=== PATIENT | male | born 1975 | race Hispanic/Latino ===

== ENCOUNTER 2016-09-20 21:52 | Emergency (ER) | payer BC, MEDICARE ==
[2016-09-20 21:57] VITALS: RESP 16; TEMP 97.6; O2SAT 100
[2016-09-20] MEDS ORDERED: Sodium Chloride 0.9% 1,000 ML IV SCH ×2 (22:15→22:57)
[2016-09-20] MEDS ORDERED: Atropine-Diphenoxylate 0.025-2.5 mg Tab PO ONE (22:19)
--- NOTE | 2016-09-20 22:26 | ED PDOC ---
HPI: Abdomen Additional History Per: Patient <RaymondRhoda hoytan - Last Filed: 09/20/16 23:56> <Salena Vasquez - Last Filed: 09/21/16 13:59> Chief Complaint (Nursing): Abdominal Pain Additional Complaint(s): 41M p/w multiple, watery, non-bloody episodes of diarrhea (~30x) that began as per patient, but then reports occasional episodes throughout past week. 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, RIH x1 Allergies: NKDA Medications: None Smoke: Yes Alcohol: 8 beers last night Drugs: Denies (Dary Pantoja) Supervising Attending Note - Supervising Attending Note The Documented history was done by the: Physician Director Of Outreach, Attending Physician The documented physical exam was done by the: Physician Director Of Outreach, Attending Physician - Attestation: I have personally seen and examined this patient.: Yes I have fully participated in the care of the patient.: Yes I have reviewed all pertinent clinical information: Yes <Salena Vasquez - Last Filed: 09/21/16 13:59> Past Medical History - Family History Family History: States: Unknown Family Hx <RaymondlaiDary - Last Filed: 09/20/16 23:56> <Salena Vasquez - Last Filed: 09/21/16 13:59> Vital Signs: Last Vital Signs Temp 97.6 F 09/20/16 21:54 Pulse 75 09/20/16 23:54 Resp 16 09/20/16 23:54 BP 125/80 09/20/16 23:54 Pulse Ox 100 09/20/16 23:57 - Home Medications Home Medications: Ambulatory Orders Medication Instructions Recorded Atropine/Diphenoxylate [Lonox 2 tab PO Q6 PRN #20 tab 09/20/16 0.025 MG-2.5 MG] Ciprofloxacin HCl [Cipro] 500 mg PO BID #20 tab 09/20/16 metroNIDAZOLE [Flagyl] 500 mg PO TID #30 tab 09/20/16 - Allergies Allergies/Adverse Reactions: Allergies Allergy/AdvReac Type Severity Reaction Status Date / Time No Known Allergies Allergy Verified 09/20/16 21:58 Review of Systems ROS Statement: Except As Marked, All Systems Reviewed And Found Negative Constitutional: Positive for: Chills Gastrointestinal: Positive for: Diarrhea (Watery, non-bloody) <Dary Pantoja - Last Filed: 09/20/16 23:56> Physical Exam - Physical Exam Appears: Positive for: Well, Non-toxic, Uncomfortable Head Exam: Positive for: ATRAUMATIC, NORMAL INSPECTION Skin: Positive for: Normal Color, Warm Eye Exam: Positive for: EOMI, PERRL. Negative for: Conjunctival injection ENT: Positive for: Pharynx Is (clear). Negative for: Tonsillar Exudate Neck: Positive for: Normal, Supple Cardiovascular/Chest: Positive for: Regular Rate, Rhythm. Negative for: JVD Respiratory: Positive for: Normal Breath Sounds. Negative for: Crackles, Rales , Rhonchi, Wheezing Pulses-Dorsalis Pedis (L): 2+ Pulses-Dorsalis Pedis (R): 2+ Pulses-Radial (L): 2+ Pulses-Radial (R): 2+ Gastrointestinal/Abdominal: Positive for: Normal Exam (scars c/w surgical history), Bowel Sounds (Hyperactive), Soft. Negative for: Tenderness, Guarding , Rebound Extremity: Positive for: Normal ROM. Negative for: Pedal Edema Neurologic/Psych: Positive for: Alert <Dary Pantoja - Last Filed: 09/20/16 23:56> - Laboratory Results Result Diagrams: 09/20/16 22:37 09/20/16 22:37 - ECG O2 Sat by Pulse Oximetry: 100 <Dary Pantoja - Last Filed: 09/20/16 23:56> - Laboratory Results Result Diagrams: 09/20/16 22:37 09/20/16 22:37 <Salena Vasquez - Last Filed: 09/21/16 13:59> Medical Decision Making <Dary Pantoja - Last Filed: 09/20/16 23:56> <Salena Vasquez - Last Filed: 09/21/16 13:59> Medical Decision Making: Viral gastroenteritis vs. c. diff - CBC, CMP, Mg, Phos - Stool c. diff/O&P/culture - IVF NS - Lomotil CMP/Mg/Phos: WNL CBC: isolated Leukocytosis Will give initial dose of Cipro/Flagyl for diarrhea (Dary Pantoja) Disposition - Patient ED Disposition Is Patient to be Admitted: No Counseled Patient/Family Regarding: Studies Performed, Diagnosis, Need For Followup, Rx Given - Disposition Disposition: Routine/Home Disposition Time: 23:45 <Dary Pantoja - Last Filed: 09/20/16 23:56> <Salena Vasquez - Last Filed: 09/21/16 13:59> - Clinical Impression Clinical Impression: Diarrhea, Acute diarrhea - Disposition Condition: GOOD Prescriptions: Atropine/Diphenoxylate [Lonox 0.025 MG-2.5 MG] 2 tab PO Q6 PRN #20 tab PRN Reason: Diarrhea Ciprofloxacin HCl [Cipro] 500 mg PO BID #20 tab metroNIDAZOLE [Flagyl] 500 mg PO TID #30 tab Instructions: Acute Diarrhea (ED) Forms: [facility] ED School/Work Excuse
[2016-09-20 22:49] LABS: BASO # 0.1 K/uL (0.0-0.2); BASO % 0.3 % (0.0-2.0); EOS # 0.1 K/uL (0.0-0.7); EOS % 0.7 % (0.0-4.0); HEMATOCRIT 34.1 % (35.0-51.0); LYMPH # 4.8 K/uL (1.0-4.3); LYMPH % 29.9 % (20.0-40.0); MEAN CELL VOLUME 69.4 fl (80.0-94.0); MEAN CORPUSCULAR HEMOGLOBIN 22.2 pg (27.0-31.0); MEAN CORPUSCULAR HGB CONC 31.9 g/dL (33.0-37.0); MEAN PLATELET VOLUME 8.9 fl (7.2-11.7); MONO # 1.3 K/uL (0.0-0.8); MONO % 7.8 % (0.0-10.0); NEUT # 9.8 K/uL (1.8-7.0); NEUT % 61.3 % (50.0-75.0); NRBC % 1.5 % (0.0-0.0); RED CELL DISTRIBUTION WIDTH 18.1 % (11.5-14.5)
[2016-09-20 22:57] LABS: ALB/GLOB RATIO 1.3 (1.0-2.1); ALKALINE PHOSPHATASE 67 U/L (38-126); ALT/SGPT 48 U/L (21-72); AST/SGOT 44 U/L (17-59); BLOOD UREA NITROGEN 17 mg/dl (9-20); CARBON DIOXIDE 22 mmol/L (22-30); CHLORIDE 103 mmol/L (98-107); GFR AFRICAN-AMERICAN > 60; GLUCOSE,RANDOM 116 mg/dL (75-110); MAGNESIUM 2.1 MG/DL (1.6-2.3); PHOSPHOROUS 2.9 mg/dl (2.5-4.5); POTASSIUM 4.5 MMOL/L (3.6-5.0); SODIUM 139 mmol/l (132-148); TOTAL PROTEIN 8.3 G/DL (6.3-8.2)
[2016-09-21] VITALS: BP 125/80; PULSE 75
== END 2016-09-21 00:03 | disposition home or self-care (01) ==
LOC: H.ER 21:52
DX: R19.7 Diarrhea, unspecified (principal); Z85.038 Personal history of other malignant neoplasm of large intestine; R10.9 Unspecified abdominal pain; R11.2 Nausea with vomiting, unspecified
CPT/HCPCS: 80053; 83735; 84100; 85025; 87045; 87177; 87209; 87230; 96360; 99283; J7040